=== PATIENT | male | born 1995 | race Caucasian/White ===

== ENCOUNTER 2024-02-29 23:55 | Emergency (ER) | payer OTHER, SELFPAY ==
[2024-03-01] MEDS ORDERED: Fluorescein Opthalmic Strip ONE
[2024-03-01] MEDS ORDERED: Tetracaine 0.5% PF 4 ML BOT ONE
[2024-03-01] MEDS ORDERED: Gentamicin Ophth Soln 0.3% 5 ml Bottle ONE (00:28)
== END 2024-03-01 00:35 | disposition home or self-care (01) ==
LOC: NAV ERS 23:55
DX: T15.01XA Foreign body in cornea, right eye, initial encounter (principal); W45.8XXA Other foreign body or object entering through skin, initial encounter
CPT/HCPCS: 65220; 99283